=== PATIENT | male | born 1940 | race Caucasian/White ===

== ENCOUNTER 2018-05-12 14:00 | Outpatient (CLI) | payer MEDICARE, MEDICAID ==
[~2018-05-12] VITALS: Ht 188 cm; Wt 118.8 kg
[2018-05-12] MEDS ORDERED: INSU100V16 SQ (14:29)
[2018-05-12] MEDS ORDERED: INSU100V5 SQ (14:29)
[2018-05-12] MEDS ORDERED: ASPI-808 PO (14:29)
[2018-05-12] MEDS ORDERED: ACET325C3 PO (14:29)
[2018-05-12] MEDS ORDERED: BISA10SU6 RC (14:29)
[2018-05-12] MEDS ORDERED: RISP2TAB83 PO (14:29)
[2018-05-12] MEDS ORDERED: METO-352 PO (14:29)
[2018-05-12] MEDS ORDERED: MELA3TAB52 PO (14:29)
[2018-05-12 14:51] LABS: BASOPHILS # (AUTO) 0.1 10^3/uL (0.0-0.1); BASOPHILS % (AUTO) 1 % (0-10); EOSINOPHILS # (AUTO) 0.3 10^3/uL (0.0-0.3); EOSINOPHILS % (AUTO) 5 % (0-10); HEMATOCRIT 37 % (40-54); HEMOGLOBIN 12.4 G/DL (13.3-17.7); LYMPHOCYTES # (AUTO) 1.1 X 10^3 (1.0-4.0); LYMPHOCYTES % (AUTO) 19 % (12-44); MEAN CORPUSCULAR HEMOGLOBIN 31 PG (25-34); MEAN CORPUSCULAR HGB CONC 33 G/DL (32-36); MEAN CORPUSCULAR VOLUME 92 FL (80-99); MEAN PLATELET VOLUME 10.9 FL (7.4-10.4); MONOCYTES # (AUTO) 0.8 X 10^3 (0.0-1.0); MONOCYTES % (AUTO) 15 % (0-12); NEUTROPHILS # (AUTO) 3.5 X 10^3 (1.8-7.8); NEUTROPHILS % (AUTO) 61 % (42-75); PLATELET COUNT 165 10^3/uL (130-400); RED CELL DISTRIBUTION WIDTH 12.8 % (10.0-14.5); WHITE BLOOD COUNT 5.7 10^3/uL (4.3-11.0)
== END 2018-05-12 16:00 | disposition home or self-care (01) ==
LOC: PREOP 14:00
PROVIDERS: ATTEND Surgery
DX: Z01.812 Encounter for preprocedural laboratory examination (principal); Z11.2 Encounter for screening for other bacterial diseases; K42.9 Umbilical hernia without obstruction or gangrene
CPT/HCPCS: 36415; 85025; 87081

== ENCOUNTER 2018-05-14 07:36 | Day surgery (SDC) | payer MEDICARE, MEDICAID ==
[~2018-05-14] VITALS: Ht 188 cm; Wt 115.2 kg
[~2018-05-14 07:36] MED LIST: ACET325C3 PO; ASPI-808 PO; BISA10SU6 RC; INSU100V16 SQ; INSU100V5 SQ; MELA3TAB52 PO; METO-352 PO; RISP2TAB83 PO
[2018-05-14 07:45] VITALS: BP 144/98
[2018-05-14] MEDS ORDERED: ceFAZolin 2 GM IV Premixed 50 ML IV ONE (07:45)
--- OUTSIDE RECORDS SUMMARY | 2018-05-14 08:01 | XMS REPORT ---
Author Author AJ SUBRAMANIAN Organization [facility] Address [address] [place] [address] Care Team Providers Care Residential Youth Counselor Name Role Phone AJ SUBRAMANIAN Unavailable PROBLEMS Type Condition ICD9-CM Code [id number] Code Onset Dates Condition Status SNOMED Code Problem Atrial fibrillation, unspecified type I48.91 Active 24606111 Problem skilled nursing current use of insulin Z79.4 Active 506640141 Problem Insomnia, unspecified type G47.00 Active 910883918 Problem Type 2 diabetes mellitus without complications E11.9 Active 344112915 Problem Essential (primary) hypertension I10 Active 61131089 Problem Alzheimer''s disease with late onset G30.1 Active 84329622 Problem Acute on chronic combined systolic and diastolic congestive heart failure I50.43 Active 935175963510089 Problem Dementia in other diseases classified elsewhere without behavioral disturbance F02.80 Active 354934762 Problem Venous insufficiency (chronic) (peripheral) I87.2 Active 84405374 Problem Muscle weakness (generalized) M62.81 Active 71530721 Problem Other abnormalities of gait and mobility R26.89 Active 126588929 Problem Other cirrhosis of liver K74.69 Active 98782418 Problem Other specified disorders of the skin and subcutaneous tissue L98.8 Active 55802726 ALLERGIES No Information ENCOUNTERS Encounter Location Date Diagnosis [facility] [id number], [place] [address] Oct, [facility] [address] [place] [id number] Oct, Alzheimer''s disease with late onset G30.1 and Type 2 diabetes mellitus without complications E11.9 [facility] [id number], [place] [address] Aug, [facility] [id number], [place] [address] Aug, [facility] [address] [place], [place] [id number] Jul, Alzheimer''s disease with late onset G30.1 and Essential (primary) hypertension I10 [facility] [address] [place], [place] [id number] Jul, Encounter to establish care Z76.89 ; Alzheimer''s disease, unspecified G30.9 and Dementia in other diseases classified elsewhere without behavioral disturbance F02.80 [facility] [address] [facility] [id number] [address] Jul, Other specified disorders of the skin and subcutaneous tissue L98.8 ; Muscle weakness (generalized) M62.81 ; Other abnormalities of gait and mobility R26.89 ; Alzheimer''s disease with late onset G30.1 ; Acute on chronic combined systolic and diastolic congestive heart failure I50.43 ; Venous insufficiency (chronic) (peripheral) I87.2 ; Other cirrhosis of liver K74.69 ; Anemia, unspecified type D64.9 ; Type 2 diabetes mellitus without complications E11.9 ; 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 ; Insomnia, unspecified type G47.00 ; Essential (primary) hypertension I10 ; Pulmonary hypertension I27.20 and Atrial fibrillation, unspecified type I48.91 IMMUNIZATIONS No Known Immunizations SOCIAL HISTORY Never Assessed REASON FOR VISIT med reconcilliation PLAN OF CARE VITAL SIGNS MEDICATIONS Medication Instructions Dosage Frequency Start Date End Date Duration Status Risperdal 2 MG Orally 3 times a day 1 tablet 8h Active Trazodone HCl 50 mg Orally Once a day 1 tablet at bedtime as needed 24h Active NovoLog 100 UNIT/ML Subcutaneous 4 times a day per sliding scale 6h Active Levemir 100 UNIT/ML Subcutaneous at bedtime 20 units Active DuoDERM CGF Extra Thin - Externally once daily every 3 days 1 dressing Active Lotrisone 1-0.05 % Externally daily as needed 1 application to affected area Active Metoprolol Succinate ER 25 MG Orally Once a day 1 tablet 24h Active Acetaminophen 325 MG Orally every 4 hrs 1 tablet as needed 4h Active Aspirin 325 MG Orally Once a day 1 tablet 24h Active Melatonin 3 MG Orally Once a day 1 tablet at bedtime 24h Active Benadryl Allergy 25 MG Orally every 6 hrs 1 tablet as needed 6h Active Bisacodyl Laxative 10 MG Rectal Once a day 1 suppository as needed 24h Active RESULTS No Results PROCEDURES No Known procedures INSTRUCTIONS MEDICATIONS ADMINISTERED No Known Medications MEDICAL (GENERAL) HISTORY Type Description Date Surgical History denies any surgery
--- OUTSIDE RECORDS SUMMARY | 2018-05-14 08:01 | XMS REPORT ---
Author Author AJ SUBRAMANIAN Organization [facility] Address [address] [place] [address] Care Team Providers Care Tractor Sweeper Driver Name Role Phone AJ SUBRAMANIAN Unavailable PROBLEMS Type Condition ICD9-CM Code [id number] Code Onset Dates Condition Status SNOMED Code Problem Other abnormalities of gait and mobility R26.89 Active 276491910 Problem Other specified disorders of the skin and subcutaneous tissue L98.8 Active 89239916 Problem Muscle weakness (generalized) M62.81 Active 97794672 Problem Intestinal malabsorption, unspecified K90.9 Active 04382793 Problem Dementia in other diseases classified elsewhere without behavioral disturbance F02.80 Active 239485668 Problem Essential (primary) hypertension I10 Active 52722099 Problem Type 2 diabetes mellitus without complications E11.9 Active 174431255 Problem Venous insufficiency (chronic) (peripheral) I87.2 Active 09718825 Problem Other cirrhosis of liver K74.69 Active 70496689 Problem Acute on chronic combined systolic and diastolic congestive heart failure I50.43 Active 619630609279746 Problem Atrial fibrillation, unspecified type I48.91 Active 40725641 Problem Insomnia, unspecified type G47.00 Active 821825440 Problem Alzheimer''s disease with late onset G30.1 Active 89251008 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 Active 597647056 ALLERGIES No Known Allergies ENCOUNTERS Encounter Location Date Diagnosis [facility] [address] [place], [place] [id number] Dec, Type 2 diabetes mellitus without complications E11.9 ; Alzheimer''s disease with late onset G30.1 ; Intestinal malabsorption, unspecified K90.9 and Diarrhea, unspecified R19.7 [facility] [address] [place], [place] [phone] Dec, Dysuria R30.0 ; Urinary retention R33.9 and Pelvic pain in male R10.2 [place] [id number] [address] Dec, [place] [address] [address] Nov, Insomnia, unspecified type G47.00 [place] [address] [address] Oct, [facility] [address] [id number] Oct, Alzheimer''s disease with late onset G30.1 and Type 2 diabetes mellitus without complications E11.[address] [place] [address] Aug, [place] [address] [address] Aug, [facility] [address] [id number] Jul, Alzheimer''s disease with late onset G30.1 and Essential (primary) hypertension I[address] [facility] [id number] 14 Jul, 2017 Encounter to establish care Z76.89 ; Alzheimer''s disease, unspecified G30.9 and Dementia in other diseases classified elsewhere without behavioral disturbance F02.80 [id number] [address] Jul, 2017 Other specified disorders of the skin and [...] 2 diabetes mellitus without complications E11.9 ; intermodal owner operator truck driver current use of insulin Z79.4 ; Insomnia, unspecified type G47.00 ; Essential (primary) hypertension I10 ; Pulmonary hypertension I27.20 and Atrial fibrillation, unspecified type I48.91 IMMUNIZATIONS No Known Immunizations SOCIAL HISTORY Never Assessed REASON FOR VISIT Routine Visit PLAN OF CARE Activity Details Follow Up prn Reason: VITAL SIGNS MEDICATIONS Medication Instructions Dosage Frequency Start Date End Date Duration Status Metoprolol Succinate ER 25 MG Orally Once a day 1 tablet 24h Active Levemir 100 UNIT/ML Subcutaneous at bedtime 20 units Active Aspirin 325 MG Orally Once a day 1 tablet 24h Active Risperdal 2 MG Orally 3 times a day 1 tablet 8h Active Benadryl Allergy 25 MG Orally every 6 hrs 1 tablet as needed 6h Not-Taking Acetaminophen 325 MG Orally every 4 hrs 1 tablet as needed 4h Active NovoLog 100 UNIT/ML Subcutaneous 4 times a day per sliding scale 6h Active Lotrisone 1-0.05 % Externally daily as needed 1 application to affected area Active Melatonin 3 MG Orally Once a day 1 tablet at bedtime 24h Active DuoDERM CGF Extra Thin - Externally once daily every 3 days 1 dressing Not-Taking Bisacodyl Laxative 10 MG Rectal Once a day 1 suppository as needed 24h Active Questran Light 4 GM/DOSE Orally Twice a day 1 scoop 12h 15 Dec, 2017 30 day(s) Active Bisacodyl 10 MG Rectal Once a day 1 suppository as needed 24h 30 day( s) Active RESULTS No Results PROCEDURES Procedure Date Ordered Result Body Site Minor complication (15 mins) Dec 26, 2017 INSTRUCTIONS MEDICATIONS ADMINISTERED No Known Medications MEDICAL (GENERAL) HISTORY Type Description Date Surgical History denies any surgery
--- OUTSIDE RECORDS SUMMARY | 2018-05-14 08:01 | XMS REPORT ---
Author Author AJ SUBRAMANIAN Organization [facility] Address [address] [place] [address] Care Team Providers Care Electromedical Equipment Technician Name Role Phone AJ SUBRAMANIAN Unavailable PROBLEMS Type Condition ICD9-CM Code [id number] Code Onset Dates Condition Status SNOMED Code Problem Atrial fibrillation, unspecified type I48.91 Active 60453668 Problem [facility] current use of insulin Z79.4 Active 464845446 Problem Insomnia, unspecified type G47.00 Active 317192560 Problem Type 2 diabetes mellitus without complications E11.9 Active 799158223 Problem Essential (primary) hypertension I10 Active 99676846 Problem Alzheimer''s disease with late onset G30.1 Active 54761466 Problem Acute on chronic combined systolic and diastolic congestive heart failure I50.43 Active 536974656722222 Problem Dementia in other diseases classified elsewhere without behavioral disturbance F02.80 Active 050417391 Problem Venous insufficiency (chronic) (peripheral) I87.2 Active 57883737 Problem Muscle weakness (generalized) M62.81 Active 30542702 Problem Other abnormalities of gait and mobility R26.89 Active 173807679 Problem Other cirrhosis of liver K74.69 Active 69219906 Problem Other specified disorders of the skin and subcutaneous tissue L98.8 Active 81946685 ALLERGIES No Information ENCOUNTERS Encounter Location Date [facility] [address] [place] [id number] Dec, 2017 Dysuria R30.0 ; Urinary retention R33.9 and Pelvic pain in male R10.2 [facility] [id number] [address] Dec, [facility] [id number] [address] Nov, Insomnia, unspecified type G47.00 [facility] [id number] [address] Oct, [facility] [address] [id number] Oct, Alzheimer''s disease with late onset G30.1 and Type 2 diabetes mellitus without complications E11.9 [place] [facility] [id number] [address] Aug, [place] [id number] [address] Aug, [facility] [address] [id number] Jul, Alzheimer''s disease with late onset G30.1 and Essential (primary) hypertension I10 [address] [id number] Jul, Encounter to establish care Z76.89 ; Alzheimer''s disease, unspecified G30.9 and Dementia in other diseases classified elsewhere without behavioral disturbance F02.80 [place] [id number] [address] Jul, Other specified disorders of the skin [...] 2 diabetes mellitus without complications E11.9 ; [facility] current use of insulin Z79.4 ; Insomnia, unspecified type G47.00 ; Essential (primary) hypertension I10 ; Pulmonary hypertension I27.20 and Atrial fibrillation, unspecified type I48.91 IMMUNIZATIONS No Known Immunizations SOCIAL HISTORY Never Assessed REASON FOR VISIT Order Request PLAN OF CARE Activity Details Pending Test UA W/CULTURE IF INDICATED (OUTSIDE LAB) VITAL SIGNS MEDICATIONS Unknown Medications RESULTS No Results PROCEDURES No Known procedures INSTRUCTIONS MEDICATIONS ADMINISTERED No Known Medications MEDICAL (GENERAL) HISTORY Type Description Date Surgical History denies any surgery
--- OUTSIDE RECORDS SUMMARY | 2018-05-14 08:01 | XMS REPORT ---
Author Author AJ SUBRAMANIAN Organization [facility] Address [address] [place] [address] Care Team Providers Care [employer] Coxswain Name Role Phone AJ SUBRAMANIAN Unavailable PROBLEMS Type Condition ICD9-CM Code [id number] Code Onset Dates Condition Status SNOMED Code Problem Atrial fibrillation, unspecified type I48.91 Active 16146515 Problem correction current use of insulin Z79.4 Active 723260847 Problem Insomnia, unspecified type G47.00 Active 710018070 Problem Type 2 diabetes mellitus without complications E11.9 Active 629251610 Problem Essential (primary) hypertension I10 Active 68621084 Problem Alzheimer''s disease with late onset G30.1 Active 15566508 Problem Acute on chronic combined systolic and diastolic congestive heart failure I50.43 Active 638779989187438 Problem Dementia in other diseases classified elsewhere without behavioral disturbance F02.80 Active 175202030 Problem Venous insufficiency (chronic) (peripheral) I87.2 Active 45871985 Problem Muscle weakness (generalized) M62.81 Active 23771551 Problem Other abnormalities of gait and mobility R26.89 Active 283418443 Problem Other cirrhosis of liver K74.69 Active 86184243 Problem Other specified disorders of the skin and subcutaneous tissue L98.8 Active 21987030 ALLERGIES No Information ENCOUNTERS Encounter Location Date Diagnosis [facility] [address] [facility] [id number] [address] Dec, [place] [place] [address] Nov, Insomnia, unspecified type G47.00 [place] [id number], [place] [address] Oct, [facility] [address] [place], [place] [id number] Oct, Alzheimer''s disease with late onset G30.1 and Type 2 diabetes mellitus without complications E11.9 [facility] [address] [facility] [id number], [place] [address] Aug, [facility] [address] [id number], [place] [address] Aug, [facility] [address] [place] [id number] Jul, Alzheimer''s disease with late onset G30.1 and Essential (primary) hypertension I10 [facility] [address] [place] [id number] Jul, Encounter to establish care Z76.89 ; Alzheimer''s disease, unspecified G30.9 and Dementia in other diseases classified elsewhere without behavioral disturbance F02.80 [address] [facility] [id number], [place] [address] Jul, Other specified disorders of the skin [...] 2 diabetes mellitus without complications E11.9 ; 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 ; Insomnia, unspecified type G47.00 ; Essential (primary) hypertension I10 ; Pulmonary hypertension I27.20 and Atrial fibrillation, unspecified type I48.91 IMMUNIZATIONS No Known Immunizations SOCIAL HISTORY Never Assessed REASON FOR VISIT medication reconciliation--NM order summary PLAN OF CARE VITAL SIGNS MEDICATIONS Medication Instructions Dosage Frequency Start Date End Date Duration Status Melatonin 3 MG Orally Once a day 1 tablet at bedtime 24h Active Lotrisone 1-0.05 % Externally daily as needed 1 application to affected area Active Levemir 100 UNIT/ML Subcutaneous at bedtime 20 units Active Aspirin 325 MG Orally Once a day 1 tablet 24h Active Bisacodyl 10 MG Rectal Once a day 1 suppository as needed 24h 30 day( s) Active Bisacodyl Laxative 10 MG Rectal Once a day 1 suppository as needed 24h Active DuoDERM CGF Extra Thin - Externally once daily every 3 days 1 dressing Not-Taking Risperdal 2 MG Orally 3 times a day 1 tablet 8h Active NovoLog 100 UNIT/ML Subcutaneous 4 times a day per sliding scale 6h Active Metoprolol Succinate ER 25 MG Orally Once a day 1 tablet 24h Active Benadryl Allergy 25 MG Orally every 6 hrs 1 tablet as needed 6h Not-Taking Acetaminophen 325 MG Orally every 4 hrs 1 tablet as needed 4h Active RESULTS No Results PROCEDURES No Known procedures INSTRUCTIONS MEDICATIONS ADMINISTERED No Known Medications MEDICAL (GENERAL) HISTORY Type Description Date Surgical History denies any surgery
--- OUTSIDE RECORDS SUMMARY | 2018-05-14 08:02 | XMS REPORT ---
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 Active 726684553 Problem Insomnia, unspecified type G47.00 Active 251761890 Problem Type 2 diabetes mellitus without complications E11.9 Active 789649561 Problem Essential (primary) hypertension I10 Active 76026900 Problem Alzheimer''s disease with late onset G30.1 Active 95347663 Problem Acute on chronic combined systolic and diastolic congestive heart failure I50.43 Active 605911837884440 Problem Dementia in other diseases classified elsewhere without behavioral disturbance F02.80 Active 603840187 Problem Venous insufficiency (chronic) (peripheral) I87.2 Active 52597953 Problem Muscle weakness (generalized) M62.81 Active 18760230 Problem Other abnormalities of gait and mobility R26.89 Active 738159879 Problem Other cirrhosis of liver K74.69 Active 36064796 Problem Other specified disorders of the skin and subcutaneous tissue L98.8 Active 21967905 ALLERGIES No Information ENCOUNTERS Encounter Location Date Diagnosis [facility] [address] [facility] [id number] [address] Aug, [place] [facility] [id number], [place] [address] Aug, [facility] [address] [place], [place] [id number] Jul, Alzheimer''s disease with late onset G30.1 and Essential (primary) hypertension I10 [facility] [address] [place], [place] [id number] Jul, Encounter to establish care Z76.89 ; Alzheimer''s disease, unspecified G30.9 and Dementia in other diseases classified elsewhere without behavioral disturbance F02.80 [facility] [address] [facility] [id number] [place] [address] Jul, Other specified disorders of the skin [...] 2 diabetes mellitus without complications E11.9 ; custodial current use of insulin Z79.4 ; Insomnia, unspecified type G47.00 ; Essential (primary) hypertension I10 ; Pulmonary hypertension I27.20 and Atrial fibrillation, unspecified type I48.91 IMMUNIZATIONS No Known Immunizations SOCIAL HISTORY Never Assessed REASON FOR VISIT Pharmacy Recommendations PLAN OF CARE VITAL SIGNS MEDICATIONS Medication Instructions Dosage Frequency Start Date End Date Duration Status Risperdal 2 MG Orally 3 times a day 1 tablet 8h Active RESULTS No Results PROCEDURES No Known procedures INSTRUCTIONS MEDICATIONS ADMINISTERED No Known Medications MEDICAL (GENERAL) HISTORY Type Description Date Surgical History denies any surgery
--- OUTSIDE RECORDS SUMMARY | 2018-05-14 08:02 | XMS REPORT ---
Author Author AJ SUBRAMANIAN Organization [facility] Address [address] [place] [address] Care Team Providers Care Cctv Technician Name Role Phone AJ SUBRAMANIAN Unavailable PROBLEMS Type Condition ICD9-CM Code FQZ65-LP Code Onset Dates Condition Status SNOMED Code Problem Atrial fibrillation, unspecified type I48.91 Active 99613270 Problem [facility] current use of insulin Z79.4 Active 974951821 Problem Insomnia, unspecified type G47.00 Active 323199043 Problem Type 2 diabetes mellitus without complications E11.9 Active 962044286 Problem Essential (primary) hypertension I10 Active 30701558 Problem Alzheimer''s disease with late onset G30.1 Active 24724033 Problem Acute on chronic combined systolic and diastolic congestive heart failure I50.43 Active 049996850292806 Problem Dementia in other diseases classified elsewhere without behavioral disturbance F02.80 Active 664765191 Problem Venous insufficiency (chronic) (peripheral) I87.2 Active 11646898 Problem Muscle weakness (generalized) M62.81 Active 17949748 Problem Other abnormalities of gait and mobility R26.89 Active 436788057 Problem Other cirrhosis of liver K74.69 Active 43697591 Problem Other specified disorders of the skin and subcutaneous tissue L98.8 Active 75941012 ALLERGIES No Known Allergies ENCOUNTERS Encounter Location Date Diagnosis [facility] [address] [facility] [id number] [address] Aug, [place] [id number] [place] [address] Aug, [facility] [address] [place], [place] [id number] Jul, Alzheimer''s disease with late onset G30.1 and Essential (primary) hypertension I10 [facility] [address] [place], [place] [id number] Jul, Encounter to establish care Z76.89 ; Alzheimer''s disease, unspecified G30.9 and Dementia in other diseases classified elsewhere without behavioral disturbance F02.80 [facility] [address] [facility] [id number] [place] [address] Jul, Other specified disorders of the skin [...] 2 diabetes mellitus without complications E11.9 ; [facility] current use of insulin Z79.4 ; Insomnia, unspecified type G47.00 ; Essential (primary) hypertension I10 ; Pulmonary hypertension I27.20 and Atrial fibrillation, unspecified type I48.91 IMMUNIZATIONS No Known Immunizations SOCIAL HISTORY Never Assessed REASON FOR VISIT [facility] Visit PLAN OF CARE Activity Details Follow Up prn Reason: VITAL SIGNS MEDICATIONS Medication Instructions Dosage Frequency Start Date End Date Duration Status Melatonin 3 MG Orally Once a day 1 tablet at bedtime 24h Unknown Lactulose 20 GM/30ML Orally twice a day 30 ml 12h Unknown Levemir 100 UNIT/ML Subcutaneous at bedtime 20 units Unknown Trazodone HCl 50 mg Orally Once a day 1 tablet at bedtime as needed 24h Unknown Bisacodyl Laxative 10 MG Rectal Once a day 1 suppository as needed 24h Unknown Acetaminophen 325 MG Orally every 4 hrs 1 tablet as needed 4h Unknown Risperdal 3 MG Orally 3 times a day 1 tablet 8h Unknown Lotrisone 1-0.05 % Externally daily as needed 1 application to affected area Unknown Metoprolol Succinate ER 25 MG Orally Once a day 1 tablet 24h Unknown DuoDERM CGF Extra Thin - Externally once daily every 3 days 1 dressing Unknown Humalog 100 UNIT/ML Subcutaneous 4 times a day sliding scale 6h Unknown Benadryl Allergy 25 MG Orally every 6 hrs 1 tablet as needed 6h Unknown Aspirin 325 MG Orally Once a day 1 tablet 24h Unknown RESULTS No Results PROCEDURES No Known procedures INSTRUCTIONS MEDICATIONS ADMINISTERED No Known Medications MEDICAL (GENERAL) HISTORY Type Description Date Surgical History denies any surgery
--- OUTSIDE RECORDS SUMMARY | 2018-05-14 08:02 | XMS REPORT ---
Author Author AJ SUBRAMANIAN Organization [facility] Address [address] [place] [address] Care Team Providers Care General Manager Food Name Role Phone AJ SUBRAMANIAN Unavailable PROBLEMS Type Condition ICD9-CM Code [id number] Code Onset Dates Condition Status SNOMED Code Problem Atrial fibrillation, unspecified type I48.91 Active 38356551 Problem MCC current use of insulin Z79.4 Active 807388060 Problem Insomnia, unspecified type G47.00 Active 134930348 Problem Type 2 diabetes mellitus without complications E11.9 Active 796374301 Problem Essential (primary) hypertension I10 Active 35167677 Problem Alzheimer''s disease with late onset G30.1 Active 93444548 Problem Acute on chronic combined systolic and diastolic congestive heart failure I50.43 Active 337838735479800 Problem Dementia in other diseases classified elsewhere without behavioral disturbance F02.80 Active 074819288 Problem Venous insufficiency (chronic) (peripheral) I87.2 Active 51714901 Problem Muscle weakness (generalized) M62.81 Active 47653706 Problem Other abnormalities of gait and mobility R26.89 Active 374478415 Problem Other cirrhosis of liver K74.69 Active 51103679 Problem Other specified disorders of the skin and subcutaneous tissue L98.8 Active 65263954 ALLERGIES No Information ENCOUNTERS Encounter Location Date Diagnosis [facility] [id number], [place] [address] Oct, [facility] [address] [place], [place] [id number] Oct, Alzheimer''s disease with late onset G30.1 and Type 2 diabetes mellitus without complications E11.9 [facility] [address] [id number], [place] [address] Aug, [facility] [id number], [place] [address] Aug, [facility] [address], [place] [id number] Jul, Alzheimer''s disease with late onset G30.1 and Essential (primary) hypertension I10 [facility] [address], [place] [id number] Jul, Encounter to establish care Z76.89 ; Alzheimer''s disease, unspecified G30.9 and Dementia in other diseases classified elsewhere without behavioral disturbance F02.80 [facility] [address] [facility] [id number] [place] [address] Jul, Other specified disorders of the skin [...] diabetes mellitus without complications E11.9 ; 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 ; Insomnia, unspecified type G47.00 ; Essential (primary) hypertension I10 ; Pulmonary hypertension I27.20 and Atrial fibrillation, unspecified type I48.91 IMMUNIZATIONS No Known Immunizations SOCIAL HISTORY Never Assessed REASON FOR VISIT routine visit PLAN OF CARE Activity Details Follow Up prn Reason: VITAL SIGNS MEDICATIONS Medication Instructions Dosage Frequency Start Date End Date Duration Status Trazodone HCl 50 mg Orally Once a day 1 tablet at bedtime as needed 24h Active Levemir 100 UNIT/ML Subcutaneous at bedtime 20 units Active Humalog 100 UNIT/ML Subcutaneous 4 times a day sliding scale 6h Active Lotrisone 1-0.05 % Externally daily as needed 1 application to affected area Active Bisacodyl Laxative 10 MG Rectal Once a day 1 suppository as needed 24h Active Benadryl Allergy 25 MG Orally every 6 hrs 1 tablet as needed 6h Active Melatonin 3 MG Orally Once a day 1 tablet at bedtime 24h Active Risperdal 2 MG Orally 3 times a day 1 tablet 8h Active Metoprolol Succinate ER 25 MG Orally Once a day 1 tablet 24h Active Acetaminophen 325 MG Orally every 4 hrs 1 tablet as needed 4h Active Lactulose 20 GM/30ML Orally twice a day 30 ml 12h Active DuoDERM CGF Extra Thin - Externally once daily every 3 days 1 dressing Active Aspirin 325 MG Orally Once a day 1 tablet 24h Active RESULTS No Results PROCEDURES Procedure Date Ordered Result Body Site Minor complication (15 mins) Oct 17, 2017 INSTRUCTIONS MEDICATIONS ADMINISTERED No Known Medications MEDICAL (GENERAL) HISTORY Type Description Date Surgical History denies any surgery
--- OUTSIDE RECORDS SUMMARY | 2018-05-14 08:02 | XMS REPORT ---
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.4 Active 810585220 Problem Insomnia, unspecified type G47.00 Active 794995641 Problem Type 2 diabetes mellitus without complications E11.9 Active 262180384 Problem Essential (primary) hypertension I10 Active 97693306 Problem Alzheimer''s disease with late onset G30.1 Active 27677487 Problem Acute on chronic combined systolic and diastolic congestive heart failure I50.43 Active 563789304502670 Problem Dementia in other diseases classified elsewhere without behavioral disturbance F02.80 Active 172047188 Problem Venous insufficiency (chronic) (peripheral) I87.2 Active 30614401 Problem Muscle weakness (generalized) M62.81 Active 41903902 Problem Other abnormalities of gait and mobility R26.89 Active 497026545 Problem Other cirrhosis of liver K74.69 Active 09186439 Problem Other specified disorders of the skin and subcutaneous tissue L98.8 Active 05844154 ALLERGIES No Information ENCOUNTERS Encounter Location Date Diagnosis [facility] [address] [place], [place] [id number] Oct, Alzheimer''s disease with late onset G30.1 and Type 2 diabetes mellitus without complications E11.9 [facility] [address] [facility] [id number], [place] [address] Aug, [facility] [address] [facility] [id number] [address] Aug, [facility] [address], [place] [id number] Jul, Alzheimer''s disease with late onset G30.1 and Essential (primary) hypertension I10 [facility] [address] [place] [id number] Jul, Encounter to establish care Z76.89 ; Alzheimer''s disease, unspecified G30.9 and Dementia in other diseases classified elsewhere without behavioral disturbance F02.80 [facility] [address] [facility] [id number] [place] [address] Jul, Other specified disorders of the skin [...] 2 diabetes mellitus without complications E11.9 ; long-term current use of insulin Z79.4 ; Insomnia, unspecified type G47.00 ; Essential (primary) hypertension I10 ; Pulmonary hypertension I27.20 and Atrial fibrillation, unspecified type I48.91 IMMUNIZATIONS No Known Immunizations SOCIAL HISTORY Never Assessed REASON FOR VISIT Admission follow up PLAN OF CARE Activity Details Follow Up 2 Months Reason: VITAL SIGNS MEDICATIONS Medication Instructions Dosage Frequency Start Date End Date Duration Status Metoprolol Succinate ER 25 MG Orally Once a day 1 tablet 24h Active Humalog 100 UNIT/ML Subcutaneous 4 times a day sliding scale 6h Active Lactulose 20 GM/30ML Orally twice a day 30 ml 12h Active Melatonin 3 MG Orally Once a day 1 tablet at bedtime 24h Active Benadryl Allergy 25 MG Orally every 6 hrs 1 tablet as needed 6h Active Bisacodyl Laxative 10 MG Rectal Once a day 1 suppository as needed 24h Active Lotrisone 1-0.05 % Externally daily as needed 1 application to affected area Active Trazodone HCl 50 mg Orally Once a day 1 tablet at bedtime as needed 24h Active Risperdal 3 MG Orally 3 times a day 1 tablet 8h Active Aspirin 325 MG Orally Once a day 1 tablet 24h Active Levemir 100 UNIT/ML Subcutaneous at bedtime 20 units Active DuoDERM CGF Extra Thin - Externally once daily every 3 days 1 dressing Active Acetaminophen 325 MG Orally every 4 hrs 1 tablet as needed 4h Active RESULTS No Results PROCEDURES Procedure Date Ordered Result Body Site [facility] VISIT ESTABLISHED PATIENT August 06, 2017 Stable Visit (10 minutes) August 06, 2017 INSTRUCTIONS MEDICATIONS ADMINISTERED No Known Medications MEDICAL (GENERAL) HISTORY Type Description Date Surgical History denies any surgery
--- OUTSIDE RECORDS SUMMARY | 2018-05-14 08:02 | XMS REPORT ---
Author Author AJ SUBRAMANIAN Organization [facility] Address [address] [place] [address] Care Team Providers Care Poultry Culler Name Role Phone AJ SUBRAMANIAN Unavailable PROBLEMS Type Condition ICD9-CM Code [id number] Code Onset Dates Condition Status SNOMED Code Problem Atrial fibrillation, unspecified type I48.91 Active 63669870 Problem USP current use of insulin Z79.4 Active 664933711 Problem Insomnia, unspecified type G47.00 Active 934056851 Problem Type 2 diabetes mellitus without complications E11.9 Active 269591874 Problem Essential (primary) hypertension I10 Active 35480468 Problem Alzheimer''s disease with late onset G30.1 Active 38598335 Problem Acute on chronic combined systolic and diastolic congestive heart failure I50.43 Active 167700484232604 Problem Dementia in other diseases classified elsewhere without behavioral disturbance F02.80 Active 044190934 Problem Venous insufficiency (chronic) (peripheral) I87.2 Active 37671676 Problem Muscle weakness (generalized) M62.81 Active 74551844 Problem Other abnormalities of gait and mobility R26.89 Active 266157956 Problem Other cirrhosis of liver K74.69 Active 67957436 Problem Other specified disorders of the skin and subcutaneous tissue L98.8 Active 53942062 ALLERGIES No Information ENCOUNTERS Encounter Location Date Diagnosis [facility] [address] [facility] [place] [id number] [address] Aug, [address] [facility] [place] [id number], [place] [address] Aug, [facility] [address] [place], [place] [id number] Jul, Alzheimer''s disease with late onset G30.1 and Essential (primary) hypertension I10 [facility] [address] [place], [place] [id number] Jul, Encounter to establish care Z76.89 ; Alzheimer''s disease, unspecified G30.9 and Dementia in other diseases classified elsewhere without behavioral disturbance F02.80 [facility] [address] [facility] [place] [id number] [place] [address] Jul, Other specified disorders of the skin [...] 2 diabetes mellitus without complications E11.9 ; USP current use of insulin Z79.4 ; Insomnia, unspecified type G47.00 ; Essential (primary) hypertension I10 ; Pulmonary hypertension I27.20 and Atrial fibrillation, unspecified type I48.91 IMMUNIZATIONS No Known Immunizations SOCIAL HISTORY Never Assessed REASON FOR VISIT retirement call PLAN OF CARE VITAL SIGNS MEDICATIONS Unknown Medications RESULTS No Results PROCEDURES No Known procedures INSTRUCTIONS MEDICATIONS ADMINISTERED No Known Medications MEDICAL (GENERAL) HISTORY Type Description Date Surgical History denies any surgery
--- OUTSIDE RECORDS SUMMARY | 2018-05-14 08:02 | XMS REPORT ---
Author Author AJ SUBRAMANIAN Organization [facility] Address [address] [place] [address] Care Team Providers Care Appraiser Real Estate Name Role Phone AJ SUBRAMANIAN Unavailable PROBLEMS Type Condition ICD9-CM Code [id number]-WW Code Onset Dates Condition Status SNOMED Code Problem Atrial fibrillation, unspecified type I48.91 Active 52111001 Problem long-term current use of insulin Z79.4 Active 053047078 Problem Insomnia, unspecified type G47.00 Active 638247257 Problem Type 2 diabetes mellitus without complications E11.9 Active 039225222 Problem Essential (primary) hypertension I10 Active 10720279 Problem Alzheimer''s disease with late onset G30.1 Active 84307908 Problem Acute on chronic combined systolic and diastolic congestive heart failure I50.43 Active 186832469707599 Problem Dementia in other diseases classified elsewhere without behavioral disturbance F02.80 Active 948889695 Problem Venous insufficiency (chronic) (peripheral) I87.2 Active 07350722 Problem Muscle weakness (generalized) M62.81 Active 37056862 Problem Other abnormalities of gait and mobility R26.89 Active 877214128 Problem Other cirrhosis of liver K74.69 Active 99424084 Problem Other specified disorders of the skin and subcutaneous tissue L98.8 Active 33767549 ALLERGIES No Information ENCOUNTERS Encounter Location Date Diagnosis [facility] [address] [facility] [id number] [address] Aug, [address] [facility] [id number], [place] [address] Aug, [facility] [address] [place], [place] [id number] Jul, Alzheimer''s disease with late onset G30.1 and Essential (primary) hypertension I10 [facility] [address] [place], [place] [id number] Jul, Encounter to establish care Z76.89 ; Alzheimer''s disease, unspecified G30.9 and Dementia in other diseases classified elsewhere without behavioral disturbance F02.80 [facility] [address] [facility] [id number] [place] [address] Jul, Other specified disorders of the skin [...] SOCIAL HISTORY Never Assessed REASON FOR VISIT [place] patient PLAN OF CARE VITAL SIGNS MEDICATIONS Medication Instructions Dosage Frequency Start Date End Date Duration Status Lactulose 20 GM/30ML Orally twice a day 30 ml 12h Active Benadryl Allergy 25 MG Orally every 6 hrs 1 tablet as needed 6h Active Aspirin 325 MG Orally Once a day 1 tablet 24h Active Humalog 100 UNIT/ML Subcutaneous 4 times a day sliding scale 6h Active Melatonin 3 MG Orally Once a day 1 tablet at bedtime 24h Active Lotrisone 1-0.05 % Externally daily as needed 1 application to affected area Active Levemir 100 UNIT/ML Subcutaneous at bedtime 20 units Active DuoDERM CGF Extra Thin - Externally once daily every 3 days 1 dressing Active Bisacodyl Laxative 10 MG Rectal Once a day 1 suppository as needed 24h Active Trazodone HCl 50 mg Orally Once a day 1 tablet at bedtime as needed 24h Active Acetaminophen 325 MG Orally every 4 hrs 1 tablet as needed 4h Active Metoprolol Succinate ER 25 MG Orally Once a day 1 tablet 24h Active Risperdal 3 MG Orally 3 times a day 1 tablet 8h Active RESULTS No Results PROCEDURES No Known procedures INSTRUCTIONS MEDICATIONS ADMINISTERED No Known Medications MEDICAL (GENERAL) HISTORY Type Description Date Surgical History denies any surgery
[2018-05-14] MEDS: LACTATED RINGERS 1,000 ML IV PRN ×2 (08:05→13:17)
[2018-05-14] MEDS ORDERED: BUP/EPI 0.5% 1:200,000 (SENSORCAINE) 30 ML VIAL ONE (08:26)
[2018-05-14] MEDS ORDERED: LIDOCAINE 1% INJ 20 ML 20 ML VIAL ONE (08:26)
--- NOTE | 2018-05-14 08:27 | Progress Note-Pre Operative ---
Pre-Operative Progress Note H&P Reviewed The H&P was reviewed, patient examined and no changes noted. Time Seen by Provider: 08:17 Date H&P Reviewed: May 14, 2018 Time H&P Reviewed: 08:18 Pre-Operative Diagnosis: incarcerated umbilical hernia JR HOPPER DO May 14, 2018 08:27
[2018-05-14] MEDS ORDERED: fentaNYL INJECTION 100 MCG/2 ML AMP ONE (09:03)
[2018-05-14] MEDS ORDERED: DEXAMETHASONE 10 MG/ML (DECADRON) 1 ML VIAL ONE (09:03)
[2018-05-14] MEDS ORDERED: proPOfol 200 MG/20 ML (DIPRIVAN) VIAL IV ONE (09:03)
[2018-05-14] MEDS ORDERED: ONDANSETRON 4 MG/2 ML (SDV) Z0FRAN ONE (09:03)
[2018-05-14] MEDS ORDERED: LIDOCAINE PF 2% 5 ML (XYLOCAINE) VIAL ONE (09:03)
[2018-05-14] MEDS ORDERED: ROCURONIUM 10 MG/ML 5 ML SYRINGE IV ONE ×2 (09:06→11:10)
[2018-05-14] MEDS ORDERED: SEVOFLURANE (ULTANE) 15 ML INHAL SOLN ONE ×4 (09:06→11:23)
[2018-05-14] MEDS ORDERED: GLYCOPYRROLATE 0.2 MG/ML (ROBINUL) 2 ML VIAL ONE (11:10)
[2018-05-14] MEDS ORDERED: ESMOLOL 100 MG/10 ML (BREVIBLOC) VIAL ONE (11:10)
[2018-05-14] MEDS ORDERED: ATROPINE INJ 0.4 MG/ML SDV ONE (11:10)
[2018-05-14] MEDS ORDERED: NEOSTIGMINE 1 MG/ML 5 ML SYRINGE ONE (11:10)
--- NOTE | 2018-05-14 11:21 | Progress Note-Post Operative ---
Post-Operative Progess Note Surgeon (s)/Bin Worker (s) Surgeon RJ HOPPER DO Bin Worker: Frank Pre-Operative Diagnosis incarcerated umbilical hernia Post-Operative Diagnosis same Procedure & Operative Findings Date of Procedure 05/14/18 Procedure Performed/Findings Lap Anesthesia Type GET Estimated Blood Loss Estimated blood loss (mL): scant Specimens/Packing Specimens Removed hernia contents RJ HOPPER DO May 14, 2018 11:21
[2018-05-14] MEDS ORDERED: ACHD5005 PO (11:23)
--- NOTE | 2018-05-14 11:23 | Discharge Inst-Surgical ---
Discharge Inst-Surgical Depart Medication/Instructions New, Converted or Re-Newed RX: RX Given to Pt/Family Patient Instructions Follow up Appt: Make appointment for 1 week. [phone] Instructions: No lifting greater than 20 pounds. No strenuous activity. May shower in 24 hours, no tub bath or soaking. Use incentive spirometer at home as directed. No Smoking Skin/Wound Care: May remove bandages in am. You need to leave the Dermabond on incision it will fall off on it's own. Symptoms to Report: Appetite Changes, Extremity Discoloration, Numbness/Tingling, Swelling Increased , Bleeding Excessive, Eyesight Changes, Pain Increased, Urine Color Change, Constipation(Persistent), Fever over 101 degree F, Pain/Pressure in chest, Urinating Difficulty, Cough Up/Vomit Blood, Heart Beat Irreg/Pounding, Pain/ Pressure in jaw, Cramps in feet or legs, Lightheadedness, Pain/Pressure in shoulder, Diarrhea(Persistent), Memory Changes Suddenly, Questions/Concerns, Weight gain consecutive days, Dizziness/Fainting, Nausea/Vomiting, Shortness of Breath, Weight gain over 2 pounds If questions or concerns contact your physician Or seek help at emergency department. Activity Activity as Tolerated: Yes Activity Instructions: Avoid Stress to Incision Driving Instructions: No Driving/Refer to Dr. Alicea Discharge Diet: No Restrictions Diet After 24 Hours: Clear Liquid if Nauseous If Any Problems/Questions/Issu: Contact Your Physician, Go to Emergency Room Skin/Wound Care Infection Signs and Symptoms: Increased Redness, Foul Odor of Wound, Increased Drainage, Skin Itchy or Has a Rash, Increased Swelling, Temperature Above 101 F Bathing Instructions: Shower Stitches/[place]/Dermabond Dis: Dermabond Ice Pack: Ice On and Off Site RJ HOPPER DO May 14, 2018 11:23
--- NOTE | 2018-05-14 11:23 | Anesthesia-General Post-Op ---
General Patient Condition Mental Status/LOC: Same as Preop Cardiovascular: Satisfactory Nausea/Vomiting: Absent Respiratory: Satisfactory Pain: Controlled Complications: Absent Post Op Complications Complications None Follow Up Care/Instructions Patient Instructions None needed. Anesthesia/Patient Condition Patient Condition Patient is doing well, no complaints, stable vital signs, no apparent adverse anesthesia problems. No complications reported per nursing. POP MEYER CRNA May 14, 2018 11:23
[2018-05-14] MEDS ORDERED: fentaNYL INJECTION 100 MCG/2 ML AMP IVP ONE (11:45)
[2018-05-14] MEDS ORDERED: morphine INJ 10 MG/ML 1ML (SYR OR VIAL) IVP ONE (11:45)
[2018-05-14] MEDS ORDERED: ONDANSETRON 4 MG/2 ML (SDV) Z0FRAN IVP PRN (11:45)
[2018-05-14 12:35] VITALS: BP 146/89
[2018-05-14 13:05] VITALS: BP 153/90
[2018-05-14 13:35] VITALS: BP 144/96
[2018-05-14] MEDS ORDERED: HYDROcodone/APAP 5 MG/325 MG (LORTAB) TAB ONE (13:38)
[2018-05-14] MEDS ORDERED: HYDROcodone/APAP 5 MG/325 MG (LORTAB) TAB PO ONE (13:45)
[2018-05-14 14:05] VITALS: BP 144/96
--- NOTE | 2018-05-14 14:59 | OPERATIVE REPORT ---
DATE OF SERVICE: PREOPERATIVE DIAGNOSIS: Incarcerated umbilical hernia. POSTOPERATIVE DIAGNOSIS: Incarcerated umbilical hernia. PROCEDURE: Laparoscopic umbilical herniorrhaphy with mesh placement. SURGEON: Walter Smith DO. SPECIAL SERVICE OFFICER: Dr. Marie. ANESTHESIA: General endotracheal tube. SPECIMEN: Hernia and contents. BLOOD LOSS: Scant. FLUIDS: Per anesthesia. POSTOPERATIVE CONDITION: Stable. INDICATION FOR PROCEDURE: The patient is a 77-year-old male who has a large umbilical hernia, wanted this fixed. FINDINGS: The patient had an incarcerated umbilical hernia small defect in the fascia but he had a lot of omentum stuck in the hernia, creating a very large ball in his umbilicus. PROCEDURE NOTE: After informed consent was obtained, the patient was brought to the operating room, placed on table in supine position, sterilely prepped and draped in normal fashion. Local lidocaine was used to infiltrate the skin in left upper quadrant, then made incision with #11 blade, carried down through the skin into the subcutaneous tissue, then deepened down to subcutaneous tissue with Bovie electrocautery down to the fascia. Fascia incised with Bovie electrocautery. Bluntly spread the muscle apart, went through posterior fascia with Bovie electrocautery and then entered the abdomen, placed 11 mm trocar port under direct visualization, created pneumoperitoneum and then placed 2 more ports in normal fashion using local lidocaine, 11-blade for stab incision and VersaStep system, all done under direct visualization, one in the right lower quadrant, one in the left lower quadrant, saw a band coming across the intestine and elected to remove this with a LigaSure and then taking the incarcerated omentum out using LigaSure as well as just some manual pressure from the outside and from pulling with instruments on the inside. Finally, able to deliver all the omentum out of the hernia sac. Once this was done, then could see the small defect, elected to place a 4-1/2-Israeli round Bard mesh, placed this in the abdomen through the left upper quadrant. I made a small stab incision above the umbilicus and then placed Carlitos, able to grasp the wire on the mesh and pulled it up and then blew up the balloon to hold the mesh in place, then tacked the mesh up to the abdominal wall with a SecureStrap starting at the 9 o'clock and then going to the 12 o'clock, 6 o'clock, and then around 3 o'clock and about half to 1 cm spacing removed the balloon, mesh laid up very nicely and then did 4 or 5 internal SecureStrap to hold the mesh in place. Took a picture, looked to be in good position at this point, then removed all ports under direct visualization, allowed pneumoperitoneum to escape. Closed the left upper quadrant incision, closed the posterior fascia with 3-0 Vicryl [id number] suture, then closed the anterior fascia with 0 Vicryl [id number] suture. Copiously irrigated incisions and closed the 2 small 5 mm incisions with single interrupted 4-0 undyed Monocryl subcuticular stitch and closed the left upper quadrant incision with 4-0 undyed Monocryl subcuticular stitch. Area was cleaned and dried and Dermabond placed as well as some tonsils to hold the excess skin of the umbilicus down and Dermabond placed as well and then Band-Aids on the incisions. Sponge, instrument and needle counts correct at the end of the case. The patient transferred to recovery room in stable condition. Dr. Marie assisted in this case helping to make incisions, close incisions and help identify anatomy. Job ID: [id number] DocumentID: [id number] Dictated Date: 05/14/2018 11:20:24 Authorization Coordinator Date: 05/14/2018 14:58:55 Dictated By: WALTER SMITH DO
== END 2018-05-14 14:05 | disposition home or self-care (01) ==
LOC: SDC 07:36
PROVIDERS: ATTEND Surgery
DX: K42.0 Umbilical hernia with obstruction, without gangrene (principal); I11.9 Hypertensive heart disease without heart failure; I51.9 Heart disease, unspecified; E11.9 Type 2 diabetes mellitus without complications; E66.01 Morbid (severe) obesity due to excess calories; Z87.891 Personal history of nicotine dependence; F03.90 Unspecified dementia, unspecified severity, without behavioral disturbance, psychotic disturbance, mood disturbance, and anxiety; Z79.82 Long term (current) use of aspirin; Z79.4 Long term (current) use of insulin; Z79.899 Other long term (current) drug therapy; Z68.32 Body mass index [BMI] 32.0-32.9, adult
CPT/HCPCS: 82962; 94664